=== PATIENT | female | born 1995 | race African-American/Black ===

== ENCOUNTER 2017-05-06 15:57 | Inpatient (IN) ==
[2017-05-06] MEDS ORDERED: DINOPROSTONE VAG GEL 10 MG SYRINGE VAG ONE ×2 (16:21→16:25)
[2017-05-06] MEDS ORDERED: ONDANSETRON 4 MG/2 ML VIAL IV PRN (16:23)
[2017-05-06] MEDS: LACTATED RINGERS 1,000 ML IV SCH ×3 (16:42→23:42)
[2017-05-06 16:47] LABS: Basophils # 0.1 10*3/uL (0.0-0.2); Basophils % 0.3 % (0.0-0.8); Eosinophils # 0.3 10*3/uL (0.0-0.87); Eosinophils % 1.6 % (0.00-10.9); Hematocrit 36.6 VOL% (35.7-47.0); Hemoglobin 12.1 GM/DL (12.0-16.0); Immature Granulocytes % 1.1 %; Immature Granulocytes Absolute 0.19 #; Lymphocytes # 2.7 10*3/uL (1.4-4.0); Lymphocytes % 15.6 % (21.3-54.2); Mean Corpuscular HGB Conc 33.1 GM/DL (32-36); Mean Corpuscular Hemoglobin 31 PG (27-34); Mean Corpuscular Volume 92.4 FL (87-102); Mean Platelet Volume 10.9 FL (9.6-12.0); Monocytes % 5.9 % (1.7-12.7); Neutrophils # 13.2 10*3/uL (1.4-7.4); Neutrophils % 75.5 % (38.7-73.9); Platelet Count 327 T/CUMM (130-400); Red Blood Count 3.96 MC/CUMM (3.8-5.5); Red Cell Distribution Width 13.4 % (9.3-17.3); White Blood Count 17.4 T/CUMM (4-12)
[2017-05-06 17:27] LABS: Alanine Aminotransferase 12 U/L (13-56); Albumin 2.8 G/DL (3.4-5.0); Alkaline Phosphatase 210 U/L (45-117); Aspartate Amino Transferase 17 U/L (0-37); Bilirubin,Total < 0.39 MG/DL (0.2-1.0); Blood Urea Nitrogen 9 MG/DL (7-18); Calcium 8.3 MG/DL (8.5-10.1); Glucose 93 MG/DL (74-106); Osmolality,Calculated 275.5 MOS/KG (273-304); Sodium 139 MMOL/L (136-145); Total Protein 6.6 G/DL (6.4-8.3); Uric Acid 4.7 MG/DL (2.6-6.0)
[2017-05-06] MEDS: MEPERIDINE 50 MG/1 ML VIAL IV PRN ×2 (18:00→20:35)
[2017-05-06] MEDS ORDERED: ZALEPLON 5 MG CAPSULE PO ONE (20:29)
[2017-05-07] MEDS ORDERED: ePHEDrine 50 MG/ML AMP IV PRN (00:13)
[2017-05-07] MEDS ORDERED: diphenhydrAMINE 50 MG/1 ML VIAL IV PRN (00:13)
[2017-05-07] MEDS ORDERED: CITRIC ACID/SODIUM CITRATE 30 ML UDCUP PO ONE ×2 (00:13→17:24)
[2017-05-07] MEDS ORDERED: PROMETHAZINE 25 MG/1 ML VIAL IM ONE (00:13)
[2017-05-07] MEDS ORDERED: FAMOTIDINE 20 MG/2 ML VIAL IV ONE ×2 (00:13→17:24)
[2017-05-07] MEDS ORDERED: LACTATED RINGERS 1,000 ML IV ONE (00:13)
[2017-05-07] MEDS ORDERED: hydrOXYzine HCL 25 MG/1 ML VIAL IM PRN (00:13)
[2017-05-07] MEDS ORDERED: fentaNYL 2 MCG/ROPIV 0.2% EPID 150 ML EPIDURAL SCH (00:30)
[2017-05-07] MEDS ORDERED: OXYTOCIN/LR 20 UNIT/1,000 ML BAG IV SCH (03:00)
[2017-05-07] MEDS: LACTATED RINGERS 1,000 ML IV SCH (05:41)
[2017-05-07] MEDS ORDERED: ceFAZolin 2,000 MG in PREMIX 1 EACH IV ONE (17:27)
[2017-05-07] MEDS ORDERED: OXYTOCIN/LR 30 UNIT/1,000 ML BAG IV ONE (17:39)
[2017-05-07] MEDS ORDERED: OXYTOCIN 10 UNIT/ML VIAL IM ONE (17:39)
[2017-05-07 18:21] LABS: Cord Arterial Blood HCO3 19.8 MMOL/L
[2017-05-07 18:23] LABS: Cord Venous Blood HCO3 21.1 MMOL/L; Cord Venous Blood PCO2 44.6 MMHG; Cord Venous Blood PO2 16.8
[2017-05-07] MEDS ORDERED: ONDANSETRON 4 MG/2 ML VIAL IV PRN (18:39)
[2017-05-07] MEDS ORDERED: OXYTOCIN/LR 20 UNIT/1,000 ML BAG IV ONE (18:39)
[2017-05-07] MEDS ORDERED: RHO(D) IMMUNE GLOBULIN 300 MCG SYRINGE IM ONE (18:39)
[2017-05-07] MEDS ORDERED: ACETAMINOPHEN 325 MG TABLET PO PRN (18:39)
[2017-05-07] MEDS ORDERED: fentaNYL 100 MCG/2 ML VIAL ONE (18:44)
[2017-05-07] MEDS ORDERED: MIDAZOLAM 2 MG/2 ML VIAL ONE (18:44)
[2017-05-07] MEDS ORDERED: PROPOFOL 200 MG/20 ML VIAL IV ONE (18:45)
[2017-05-07] MEDS ORDERED: LIDOCAINE MPF 2% /EPI 20 ML VIAL ONE (18:45)
[2017-05-07] MEDS ORDERED: LACTATED RINGERS 1,000 ML IV SCH (19:00)
[2017-05-07] MEDS ORDERED: NALOXONE 0.4 MG/ML VIAL IV PRN (20:13)
[2017-05-07] MEDS ORDERED: MORPHINE PCA 30 MG/30 ML SYRINGE IV SCH (20:30)
[2017-05-08] MEDS: ceFAZolin 1,000 MG in SYRINGE 1 EACH IV SCH ×2 (02:19→09:45)
[2017-05-08 06:22] LABS: Basophils # 0.1 10*3/uL (0.0-0.2); Basophils % 0.2 % (0.0-0.8); Eosinophils % 0.2 % (0.00-10.9); Hematocrit 27.9 VOL% (35.7-47.0); Hemoglobin 9.1 GM/DL (12.0-16.0); Immature Granulocytes Absolute 0.25 #; Lymphocytes # 2.2 10*3/uL (1.4-4.0); Lymphocytes % 8.8 % (21.3-54.2); Mean Corpuscular HGB Conc 32.6 GM/DL (32-36); Mean Corpuscular Hemoglobin 30 PG (27-34); Mean Corpuscular Volume 91.8 FL (87-102); Mean Platelet Volume 11.4 FL (9.6-12.0); Monocytes # 1.5 10*3/uL (0.11-0.8); Monocytes % 5.9 % (1.7-12.7); Neutrophils # 21.2 10*3/uL (1.4-7.4); Neutrophils % 83.9 % (38.7-73.9); Platelet Count 256 T/CUMM (130-400); Red Blood Count 3.04 MC/CUMM (3.8-5.5); Red Cell Distribution Width 13.2 % (9.3-17.3); White Blood Count 25.3 T/CUMM (4-12)
[2017-05-08 06:42] LABS: Band Neutrophils 6 % (0-10); Lymphocytes 4 % (20-55); Segmented Neutrophils 85 % (50-85); Total Cells Counted 100
[2017-05-08 06:43] LABS: Hypochromasia Slight; Microcytosis Slight; Platelet Estimate Normal
[2017-05-08] MEDS ORDERED: INFLUENZA VIRUS VACCINE 0.5 ML SYRINGE IM ONE (08:00)
[2017-05-08] MEDS: IBUPROFEN 800 MG TABLET PO PRN ×3 (08:34→23:16)
[2017-05-08] MEDS: MAGNESIUM HYDROXIDE SUSP 30 ML UDCUP PO PRN ×2 (09:00→20:51)
[2017-05-08] MEDS: MULTIVITAMIN (PRENATAL) TABLET PO SCH (09:10)
[2017-05-08] MEDS: SIMETHICONE CHEW 80 MG TABLET PO PRN ×2 (09:10→20:51)
[2017-05-08] MEDS: DOCUSATE SODIUM 100 MG CAPSULE PO SCH ×3 (09:11→20:51)
[2017-05-08 19:16] LABS: Apearance,Urine Slightly Hazy (Clear); Bilirubin,Urine Negative (Negative); Blood, Urine Large mg/dL (Negative); Glucose,Urine (UA) Negative (Negative); Ketones,Urine Negative (Negative); Mucus,Urine Occasional /LPF (Occasional); Nitrite,Urine Negative (Negative); Protein,Urine Negative; RBC,Urine 1961 /HPF (0-4); Squamous Epithelial Cell,Urine Occasional /HPF (0-10); Urine Color Yellow (Yellow); Urine Urobilinogen < 2.0 EU/DL (0.2-1.0); WBC,Urine 32 /HPF (0-6)
[2017-05-08 19:19] LABS: Barbiturates Screen,Urine Negative (Negative); Benzodiazepines Screen,Urine Positive (Negative); Cannabinoid Screen,Urine Positive (Negative); Opiate Screen,Urine Positive (Negative); Phencyclidine Screen,Urine Negative (Negative)
[2017-05-08] MEDS ORDERED: BISACODYL 10 MG SUPP RECTAL PRN (20:08)
[2017-05-09] MEDS ORDERED: METOCLOPRAMIDE 10 MG TABLET PO PRN (02:26)
[2017-05-09] MEDS: SIMETHICONE CHEW 80 MG TABLET PO PRN ×2 (02:36→08:06)
[2017-05-09] MEDS: oxyCODONE/ACETAMINOPHEN 5-325 MG TABLET PO PRN ×2 (04:00→08:06)
[2017-05-09 07:46] VITALS: BP 82/43
[2017-05-09] MEDS ORDERED: METOCLOPRAMIDE 10 MG TABLET PO SCH (08:00)
[2017-05-09] MEDS: MULTIVITAMIN (PRENATAL) TABLET PO SCH (08:06)
[2017-05-09] MEDS: DOCUSATE SODIUM 100 MG CAPSULE PO SCH (08:06)
[2017-05-09] MEDS ORDERED: FERROUS SULFATE 325 MG TABLET PO SCH (09:00)
[2017-05-09] MEDS: IBUPROFEN 800 MG TABLET PO PRN (11:48)
== END 2017-05-09 12:10 | disposition home or self-care (01) | DRG 540 ==
LOC: N.LDOUT 15:57 → N.LD 16:00 → N.OB 05-07 23:15
PROVIDERS: ADMIT Obstetrics & Gynecology; ATTEND Obstetrics & Gynecology